=== PATIENT | male | born 1990 | race Two or more races ===

== ENCOUNTER 2022-07-23 06:41 | Emergency (ER) | payer OTHER ==
[~2022-07-23] VITALS: Ht 170.2 cm; Wt 72.1 kg
== END 2022-07-23 10:42 | disposition home or self-care (01) ==
LOC: ER 06:41
DX: S50.11XA Contusion of right forearm, initial encounter (principal); S60.221A Contusion of right hand, initial encounter; X58.XXXA Exposure to other specified factors, initial encounter; Y93.89 Activity, other specified; Y99.9 Unspecified external cause status